=== PATIENT | female | born 1995 | race Caucasian/White ===

== ENCOUNTER 2022-01-01 12:10 | Outpatient (CLI) | payer OTHER ==
[2022-01-01 23:16] LABS: SARS-CoV-2 PCR by NAA Not Detected (NotDetected)
== END 2022-01-01 12:11 | disposition home or self-care (01) ==
LOC: CSHLAB 12:10
PROVIDERS: ATTEND Obstetrics & Gynecology
DX: Z20.822 Contact with and (suspected) exposure to COVID-19 (principal)
CPT/HCPCS: U0003; U0005

== ENCOUNTER 2022-01-05 18:00 | Inpatient (IN) | payer OTHER, SELFPAY ==
[2022-01-05] MEDS ORDERED: hydrALAZINE 20 MG/ML VIAL SLOW IVP PRN (22:34)
[2022-01-05] MEDS ORDERED: Carboprost 250 MCG/ML AMP IM PRN (22:34)
[2022-01-05] MEDS ORDERED: Ibuprofen 800 MG TAB PO PRN (22:34)
[2022-01-05] MEDS ORDERED: Butorphanol Tartrate 1 MG/ML VIAL SLOW IVP PRN (22:34)
[2022-01-05] MEDS ORDERED: Misoprostol 200 MCG TAB PR PRN (22:34)
[2022-01-05] MEDS ORDERED: Ondansetron PF 4 MG/2 ML Vial IVP PRN (22:34)
[2022-01-05] MEDS ORDERED: Docusate 100 MG CAP PO PRN (22:34)
[2022-01-05] MEDS ORDERED: HYDROcodone/Acetaminophen 5/325 mg Tablet PO PRN (22:34)
[2022-01-05] MEDS ORDERED: Promethazine HCl 25 MG/ML VIAL IM PRN (22:34)
[2022-01-05] MEDS ORDERED: Lidocaine 1% (PF) 30 ML VIAL SC PRN (22:34)
[2022-01-05] MEDS ORDERED: Diphenoxylate HCl/Atropine Tablet PO PRN ×2 (22:34)
[2022-01-05] MEDS ORDERED: NS w/ Oxytocin 30 units 500 ML IV SCH ×2 (22:45)
[2022-01-06 03:21] VITALS: BMI 39.2
[2022-01-06] MEDS: Lactated Ringer's 1,000 ML IV SCH ×3 (03:45→13:31)
[2022-01-06] MEDS: Misoprostol 100 MCG TAB VAG SCH ×5 (04:03→18:40)
[2022-01-06 04:19] LABS: Hemoglobin 13.4 g/dL (12.0-15.5); Mean Corpuscular HGB CONC 33.8 g/dL (32.0-36.0); Mean Corpuscular Hemoglobin 31.2 pg (27.0-33.0); Mean Corpuscular Volume 92.1 fl (81.6-98.3); Mean Platelet Volume 10.8 fl (7.4-10.4); Platelet Count 258 10x3/uL (150-450); RBC Distribution Width 12.4 % (11.5-14.5); White Blood Cell (WBC) Count 11.5 10x3/uL (3.5-10.5)
[2022-01-06 04:53] LABS: HIV (1/2) Antibody/Antigen Non-Reactive (NonReactive); HIV 1/2 INDEX 0.18 S/CO (<1.00); Hep B Surf Ag Non-Reactive S/CO (NonReactive)
[2022-01-06 07:22] LABS: Syphilis Antibody Nonreactive (Nonreactive); Syphilis Antibody Index 0.08 S/CO (<1.00 Non-Reactive)
[2022-01-06] MEDS ORDERED: Bupivacaine 0.25% HCL 30 ML VIAL ONE (08:00)
[2022-01-06] MEDS ORDERED: Lidocaine 2% PF 5 ML VIAL ONE (08:00)
[2022-01-06] MEDS: Acetaminophen 500 MG TAB PO PRN ×3 (08:39→21:44)
[2022-01-06] MEDS: Misoprostol 100 MCG TAB PO SCH ×2 (11:55→18:40)
[2022-01-07] MEDS ORDERED: Fentanyl 2 mcg/Bup 0.1% Cadd 100 ML ONE (01:48)
[2022-01-07] MEDS ORDERED: Lactated Ringer's 500 ML IV PRN (01:58)
[2022-01-07] MEDS ORDERED: Ondansetron PF 4 MG/2 ML Vial IVP PRN ×2 (01:58→22:07)
[2022-01-07] MEDS ORDERED: Naloxone HCl 0.4 mg/ml Vial IVP PRN ×2 (01:58)
[2022-01-07] MEDS ORDERED: Promethazine HCl 25 MG/ML VIAL IM PRN ×2 (01:58→22:07)
[2022-01-07] MEDS ORDERED: Acetaminophen 325 MG TAB PO PRN (01:58)
[2022-01-07] MEDS ORDERED: Hydrocerin (Eucerin) Cream 120 gm Jar TOP PRN (01:58)
[2022-01-07] MEDS ORDERED: diphenhydrAMINE 50 MG/ML VIAL IVP PRN (01:58)
[2022-01-07] MEDS ORDERED: ePHEDrine Sulfate 50 MG/10 ML VIAL SLOW IVP PRN (01:58)
[2022-01-07] MEDS ORDERED: Communication Order-Pharmacy FS SCH (02:00)
[2022-01-07] MEDS: Fentanyl 2 mcg/Bupivacaine 0.1% Cassette 100 ML EPIDURAL SCH ×2 (09:28→16:08)
[2022-01-07] MEDS ORDERED: NS w/ Oxytocin 30 units 500 ML IV SCH (20:15)
[2022-01-07] MEDS ORDERED: hydrALAZINE 20 MG/ML VIAL SLOW IVP PRN (22:07)
[2022-01-07] MEDS ORDERED: Lanolin Ointment 7 GM TUBE TOP PRN (22:07)
[2022-01-07] MEDS ORDERED: HYDROcodone/Acetaminophen 5/325 mg Tablet PO PRN (22:07)
[2022-01-07] MEDS ORDERED: diphenhydrAMINE 25 MG CAP PO PRN (22:07)
[2022-01-07] MEDS ORDERED: Varicella virus, LIVE 0.5 ML VIAL SC ONE (22:07)
[2022-01-07] MEDS ORDERED: Measles/Mumps/Rubella 10 MCG/0.5 ML VIAL SC ONE (22:07)
[2022-01-07] MEDS ORDERED: Boostrix 0.5 ML (Tdap) VIAL IM ONE (22:07)
[2022-01-07] MEDS ORDERED: Milk Of Magnesia 30 ML UDCUP PO PRN (22:07)
[2022-01-07] MEDS ORDERED: Benzocaine-Menthol 82.5 ML CAN TOP PRN (22:07)
[2022-01-07] MEDS ORDERED: Bisacodyl 10 MG SUPP PR PRN (22:07)
[2022-01-07] MEDS ORDERED: Misoprostol 200 MCG TAB VAG PRN (22:07)
[2022-01-07] MEDS ORDERED: Zolpidem Tartrate 5 MG TAB PO PRN (22:07)
[2022-01-07] MEDS ORDERED: Preparation H Ointment 28 GM TUBE PR PRN (22:07)
[2022-01-07] MEDS ORDERED: Docusate 100 MG CAP PO SCH (22:15)
[2022-01-07] MEDS: Ibuprofen 800 MG TAB PO SCH (22:38)
[2022-01-07] MEDS: Lactated Ringer's 1,000 ML IV SCH ×2 (23:14→23:15)
[2022-01-07] MEDS: Misoprostol 100 MCG TAB VAG SCH ×2 (23:15→23:16)
[2022-01-08 04:41] LABS: Hemoglobin 12.3 g/dL (12.0-15.5); Mean Corpuscular HGB CONC 34.2 g/dL (32.0-36.0); Mean Corpuscular Hemoglobin 31.9 pg (27.0-33.0); Mean Corpuscular Volume 93.3 fl (81.6-98.3); Platelet Count 226 10x3/uL (150-450); RBC Distribution Width 12.5 % (11.5-14.5); Red Blood Cell (RBC) Count 3.86 10x6/uL (3.90-5.03); White Blood Cell (WBC) Count 16.1 10x3/uL (3.5-10.5)
[2022-01-08] MEDS: Ibuprofen 800 MG TAB PO SCH ×3 (05:55→21:37)
[2022-01-08] MEDS: Ferrous Sulfate 325 MG TAB PO SCH ×2 (08:03→14:57)
[2022-01-08] MEDS: Prenatal Vitamin 1 TAB PO SCH (08:04)
[2022-01-08] MEDS: Docusate 100 MG CAP PO SCH ×2 (08:04→21:37)
[2022-01-08] MEDS ORDERED: hydrALAZINE 20 MG/ML VIAL SLOW IVP PRN (20:43)
[2022-01-09] MEDS: Ibuprofen 800 MG TAB PO SCH ×2 (07:09→14:13)
[2022-01-09 07:54] VITALS: BP 132/76; TEMP 97.8
[2022-01-09] MEDS: Ferrous Sulfate 325 MG TAB PO SCH (08:45)
[2022-01-09] MEDS: Prenatal Vitamin 1 TAB PO SCH (08:46)
[2022-01-09] MEDS: Docusate 100 MG CAP PO SCH (08:46)
== END 2022-01-09 14:05 | disposition home or self-care (01) | DRG 807 ==
LOC: CSHLD 22:35 → UNDOADMIN 01-06 01:36 → CSHPP 01-07 22:17 → CSHLD 01-07 22:17
PROVIDERS: ADMIT Obstetrics & Gynecology; ATTEND Obstetrics & Gynecology
PROC: 10E0XZZ Delivery of Products of Conception, External Approach (ICD-10-PCS; principal; 2022-01-07)
PROC: 0HQ9XZZ Repair Perineum Skin, External Approach (ICD-10-PCS; 2022-01-07)
DX: O13.4 Gestational [pregnancy-induced] hypertension without significant proteinuria, complicating childbirth (principal); Z37.0 Single live birth; Z3A.37 37 weeks gestation of pregnancy; O70.0 First degree perineal laceration during delivery
CPT/HCPCS: 36415; 85027; 86780; 86850; 86900; 86901; 87340; 87389; J0595; J2001; J2405; J2590; J7120; S0020